=== PATIENT | male | born 1995 | race Caucasian/White ===

== ENCOUNTER → 2024-05-11 09:21 | Outpatient (REF) | payer BC, SELFPAY | LOC: RAD 09:21 | PROVIDERS: ATTENDING PHYSICIAN Specialist; FAMILY PHYSICIAN Family Medicine | DX: N50.819 Testicular pain, unspecified (principal); R10.9 Unspecified abdominal pain | CPT/HCPCS: 74176 ==

== ENCOUNTER → 2024-07-03 07:20 | Outpatient (REF) | payer BC, SELFPAY | LOC: RAD 07:20 | PROVIDERS: FAMILY PHYSICIAN Family Medicine | DX: R10.2 Pelvic and perineal pain (principal) | CPT/HCPCS: 76870; 93976 ==

== ENCOUNTER 2024-10-30 06:19 | Day surgery (SDC) | payer BC, SELFPAY ==
[2024-10-30] VITALS (8 sets, daily range): BP systolic 110–144; BP diastolic 65–87
[2024-10-30] MEDS: TYLENOL 1000 MG PO (08:40)
[2024-10-30] MEDS: NORMOSOL-R/PLASMALYTE-A 1000 IV (08:40)
--- NOTE | 2024-10-30 09:13 | W.SUR.PREOP ---
Pre-Operative Surgical Note
-
I have examined this patient prior to the performance of the scheduled procedure.
The patient's condition is unchanged from the time of the current History and
Physical and the patient is able to undergo the scheduled procedure.
--- NOTE | 2024-10-30 09:13 | HP.FOC2 ---
Focused History & Physical
Chief Complaint
HPI:
Chief Complaint: This is a 29-year-old male who presents with a symptomatic right inguinal hernia.
HPI / Indication for Planned Procedure: This is a 29-year-old male who presents with a symptomatic right inguinal hernia. Will plan for a robotic right inguinal hernia repair with mesh.
Relevant Past Medical History: Negative
Relevant Social History: Negative
Relevant Past Surgical History: Negative
Review of Systems
Review of Pertinent Systems: All Systems Negative
Medication
See Medication form for detailed medications: Yes
Medication List (including Herbals & OTC):
levocetirizine 5 mg tablet (Xyzal) 5 mg PO HS 11/23/20
Medications Reviewed: Yes
Allergies and Reactions
Patient has Allergies: Yes
Noted Allergies and Reactions:
Allergy/AdvReac Type Severity Reaction Status Date / Time
latex Allergy Rash Verified 10/30/24 08:29
Pertinent Physical Exam
All Other Systems: Negative
Head/Neck: Normal
Diagnosis / Assessment
This is a 29-year-old male who presents with a symptomatic right inguinal hernia.
Plan / Procedure
Will plan for a robotic right inguinal hernia repair with mesh.
Anesthesia/Sedation to be done by Anesthesia Provider: Yes
--- NOTE | 2024-10-30 11:19 | OR.RPT ---
Operative Report
Operative Report
Patient Name: Dario Agosto
: 1995
Date of Operation: 10/30/2024
Preoperative Diagnosis: Reducible Inguinal hernia, right
Postoperative Diagnosis: Same
Procedure(s):
Robotic Inguinal Hernia Repair with mesh, (OLU approach)
Surgeon(s):
Dr. Chester
Loan Review Officer(s):
None
Anesthesia: General
Estimated Blood Loss: 3 cc
Urine Output: None
Drains/Lines/Implants: Large 3D Max Bard mid weight uncoated polypropylene mesh
Specimens: None
Indication for surgery: The patient has a history of groin pain and noted on exam to have a right inguinal Hernia. Following review of therapeutic options they have elected to undergo a minimally invasive repair.
Findings at the time of surgery:
The patient had a right direct inguinal hernia. No obvious defect noted on the left though due to his obesity/significant amount of preperitoneal fat, this was difficult to rule out. After achieving the critical view of the MPO the space was
reinforced with a large right Bard 3D max mid weight uncoated polypropylene mesh.
Details of the operation:
The patient was brought to the Operating Room and placed in the supine position with the arms tucked. IV antibiotics were infused and Venodyne stockings placed. Following uneventful induction of general endotracheal anesthesia, an orogastric tube
was placed. The abdomen was prepped and draped in the usual sterile fashion. The abdomen was entered using a Veress technique which required 1 pass, pneumoperitoneum to 15 mmHg was obtained without difficulty. An 8mm trochar was passed through the
abdominal wall roughly 20 cm cephalad to the inguinal canal. We then confirmed that no inadvertent injury was made while passing the trocar or Veress needle. We then placed two additional 8 mm ports in the left upper and right upper quadrants. We
then docked the robot with a Prograsper in the left hand port and monopolar scissors in the right. An obvious right indirect inguinal hernia defect was noted, no defect was noted on the left. We then began on the right side by creating a flap at
the level of the ASIS laterally working our way medially to the medial umbilical fold. Staying onto the peritoneum we were able to circumferentially dissect around the hernia sac and and peel it off of the underlying spermatic cord and testicular
vessels, taking care to preserve them. Medially we identified the midline pubis as well as Harshad's ligament and ensured to dissect 2 cm below the pubic rim over the bladder. After exposure of the entire myopectineal orifice we identified and
reduced: A medium sized direct inguinal defect containing preperitoneal fat that was resected, no indirect or femoral defect, a small cord lipoma that was reduced. There was some bleeding along Harshad's ligament that was controlled with
electrocautery. The direct sac was imbricated/inverted using a 2-0 V-Loc 180 suture from Harshad's to the attenuated transversalis fascia.
We then fixated a large 3D max mesh with a 2-0 Vicryl stitch at coopers medially and superior laterally. The flap was then closed with a running 2-0 barbed monocryl suture ensuring that the tail was cut flush with the medial fat pad so that no
barbs were exposed. During the closure of the flap an Angiocath was inserted and 20 cc of quarter percent Marcaine was instilled. The area in the flap cavity was then evacuated of air confirming that the mesh was flush and there were no folds. A
small rent in the peritoneum was noted and closed with 2-0 Vicryl. All needles and instruments were then removed and the robot was undocked. The abdomen was then desufflated, and pneumoperitoneum evacuated. All skin sites were then closed with 4-0
Monocryl followed by Dermabond. Counts were correct and overall, the patient tolerated the procedure well and was taken to the Recovery Room postoperatively in stable condition.
I was the attending physician and performed the procedure without assistance. I was present for all portions of the case.
Jamel Chester MD
--- NOTE | 2024-10-30 11:23 | W.IMMPOSTOP ---
Surgical Immed Post Op Note
-
Primary Surgeon: Jamel Chester MD
Assisting Surgeon: None
Pre-op Diagnosis: Right inguinal hernia
Post-op Diagnosis: Same
Procedure Performed: Robotic right inguinal hernia repair with mesh
Anesthesia Type: General
Specimen / Cultures: None
Estimated Blood Loss: 3 cc
Complications: None
Operative Findings:
The patient had a right direct inguinal hernia. No obvious defect noted on the left though due to his obesity/significant amount of preperitoneal fat, this was difficult to rule out. After achieving the critical view of the MPO the space was
reinforced with a large right Bard 3D max mid weight uncoated polypropylene mesh.
[2024-10-30] MEDS: DILAUDID 0.5 MG IV (11:27)
[2024-10-30] MEDS: MOTRIN 600 MG PO (12:52)
== END 2024-10-30 13:15 | disposition home or self-care (01) ==
LOC: SDS 06:19
PROVIDERS: ATTENDING PHYSICIAN Surgery
DX: K40.90 Unilateral inguinal hernia, without obstruction or gangrene, not specified as recurrent (principal)
CPT/HCPCS: 49650; C1781